=== PATIENT | male | born 1955 | race Caucasian/White ===

== ENCOUNTER 2017-05-12 06:41 | Emergency (ER) | payer MEDICARE ==
[~2017-05-12] VITALS: Ht 170.2 cm; Wt 69.1 kg
[~2017-05-12 06:41] MED LIST: MORP10CA10; OXYC5CAP4
[2017-05-12 06:42] VITALS: BP 125/79
== END 2017-05-12 08:49 | disposition home or self-care (01) ==
LOC: ED 08:45
DX: S90.32XA Contusion of left foot, initial encounter (principal); W20.8XXA Other cause of strike by thrown, projected or falling object, initial encounter; Y93.89 Activity, other specified; Y99.8 Other external cause status; Y92.009 Unspecified place in unspecified non-institutional (private) residence as the place of occurrence of the external cause
CPT/HCPCS: 99284

== ENCOUNTER 2019-02-26 13:20 | Emergency (ER) | payer MEDICARE ==
[~2019-02-26] VITALS: Ht 170.2 cm; Wt 72.0 kg
[~2019-02-26 13:20] MED LIST changes: +OXYC5CAP2; -OXYC5CAP4
[2019-02-26 13:36] VITALS: BP 141/83
--- NOTE | 2019-02-26 13:47 | NUR ---
PT AMBULATORY TO [facility] FROM TRIAGE WITH STEADY GAIT. LAC NOTED TO RIGHT MID-THIGH, BLEEDING CONTROLLED. CMS INTACT. PULSE NORMAL AND STRONG. JAVIER VALERO AT BEDSIDE FOR EVALUATION. A&OX4. NAD NOTED. CALL LIGHT IN REACH. FALL PRECAUTIONS IN PLACE.
[2019-02-26] MEDS ORDERED: LIDOCAINE-MPF 1%, 5ML ONE (13:49)
--- NOTE | 2019-02-26 13:55 | NUR ---
JAVIER VALERO AT BEDSIDE TO ADMIN LIDO TO LAC
[2019-02-26] MEDS ORDERED: LIDOCAINE 2%, 20ML SQ ONE (14:00)
--- NOTE | 2019-02-26 14:10 | NUR ---
[employer] OPER[employer] HELPER AT BEDSIDE TO CLEAN/IRRIGATE WOUND PER PA ORDER.
--- NOTE | 2019-02-26 14:20 | NUR ---
JAVIER VALERO AT BEDSIDE FOR LAC REPAIR WITH SUTURE PLACEMENT
--- NOTE | 2019-02-26 14:42 | NUR ---
PA AND STUDENT PA REMAIN AT BEDSIDE FOR SUTURE PLACEMENT
--- NOTE | 2019-02-26 14:56 | NUR ---
REPORT AND CARE TO DARNELL GEORGE AT THIS TIME.
[2019-02-26] MEDS ORDERED: HYDROcodone/APAP 5/325 TABLET ONE (15:28)
[2019-02-26] MEDS ORDERED: ONDANSETRON ODT 4 MG ONE (15:28)
[2019-02-26] MEDS ORDERED: HYDROcodone/APAP 5/325 TABLET PO ONE (15:30)
[2019-02-26] MEDS ORDERED: ONDANSETRON ODT 4 MG PO ONE (15:30)
== END 2019-02-26 15:31 | disposition home or self-care (01) ==
LOC: ED 15:25
DX: S71.111A Laceration without foreign body, right thigh, initial encounter (principal); W45.8XXA Other foreign body or object entering through skin, initial encounter; Y93.89 Activity, other specified; Y92.89 Other specified places as the place of occurrence of the external cause; Y99.8 Other external cause status
CPT/HCPCS: 12032; 73552; 99284; Q0162